=== PATIENT | male | born 1970 | race African-American/Black ===

== ENCOUNTER 2022-12-05 19:31 | Emergency (ER) | payer OTHER, SELFPAY ==
[2022-12-05 19:48] VITALS: BP 140/82; PULSE 66; RESP 16; TEMP 36.6; O2SAT 99
--- NOTE | 2022-12-05 20:11 | ED.MALEGU ---
HPI - Male Genitourinary General Chief complaint: Urogenital-Male Stated complaint: discharge Time Seen by Provider: 12/05/22 19:55 Source: patient and RN notes reviewed Mode of arrival: ambulatory Limitations: no limitations History of Present Illness HPI Narrative: Patient presents today complaining of 1 episode of brief dysuria 3 days ago, and none since that time. Today he noted some clear urethral discharge in his underwear. Denies any additional symptoms to include fever, sweats, chills, abdominal pain, scrotal pain or swelling. History of prostatitis in 2016. History of rheumatoid arthritis. Related Data Allergies Allergy/AdvReac Type Severity Reaction Status Date / Time oxycodone AdvReac Intermediate Cramping Verified 12/05/22 20:05 of the [facility] [place] Review of Systems Review of Systems: CONSTITUTIONAL: Denies body aches, fever, chills, or sweats. EYES: Denies visual changes, redness, or discharge. ENT: Denies rhinorrhea, congestion, sore throat, or otalgia. CARDIOVASCULAR: Denies chest pain, palpitations, or edema. RESPIRATORY: Denies cough or dyspnea. GASTROINTESTINAL: Denies abdominal pain, nausea, vomiting, or diarrhea. GENITOURINARY: Denies hematuria.+ dysuria-resolved, clear urethral discharge SKIN: Denies rash, itching, or wounds. MUSCULOSKELETAL: Denies back pain, joint pain, or myalgia. NEUROLOGIC: Denies headache, numbness, tingling, or weakness. PSYCH: Denies depression or anxiety. [facility] Past Medical History Medical History (Updated 12/05/22 @ 20:17 by Symone Gerard, [facility], ) History of prostatitis Rheumatoid arthritis Comments At time of signature, I have reviewed and agree with nursing past medical, surgical, social and family history unless otherwise noted. Please see nursing chart for further information. There is no relevant family history pertinent to the presenting complaint Exam Narrative: GENERAL: Well-appearing, well-nourished, and in no acute distress. HEAD: Normocephalic, atraumatic. EYES: EOMI. No redness or drainage. Conjunctivae normal. ENT: Mucous membranes pink and moist. NECK: Normal AROM. CHEST: No respiratory distress. : Exam deferred EXTREMITIES: Normal range of motion. No edema. SKIN: Warm, dry, no rash. Capillary refill normal. Normal skin turgor. NEURO: No focal deficits. Alert and oriented x3. Gait steady. PSYCH: Normal affect. No signs of depression or anxiety. Course Course Level of Care: Express Care Visit Vital Signs Vital signs: Vital Signs Temperature 97.8 F 12/05/22 19:48 Pulse Rate 66 12/05/22 19:48 Respiratory Rate 16 12/05/22 19:48 Blood Pressure 140/82 12/05/22 19:48 Pulse Oximetry 99 12/05/22 19:48 Oxygen Delivery Room Air 12/05/22 19:48 Temperature 97.8 F 12/05/22 19:48 Pulse Rate 66 12/05/22 19:48 Respiratory Rate 16 12/05/22 19:48 Blood Pressure 140/82 12/05/22 19:48 Pulse Oximetry 99 12/05/22 19:48 Oxygen Delivery Room Air 12/05/22 19:48 Reviewed. Pt has been instructed to follow up with his PCP regarding his elevated blood pressure today. MDM - Male Genitourinary MDM Narrative Medical decision making narrative: At this time, will treat patient's presumed UTI with a course of Keflex, based on his urinalysis results. Culture pending. Patient would like to be tested for gonorrhea, chlamydia, and Trichomonas, however, he declines prophylactic treatment at this time. Understands the risks and benefits. Anticipatory guidance given. Differential Diagnosis Differential diagnosis: Likely urinary tract infection, prostatitis and other (Gonorrhea, chlamydia, Trichomonas) Lab Data Attestation: I reviewed the patient's lab results. Labs: Urine Glucose Negative Reference Range: Negative Urine Bilirubin Negative Reference Range: Negative
== END 2022-12-05 20:23 | disposition home or self-care (01) ==
PROVIDERS: Emergency Provider Nurse Practitioner; PCP Hospitalist
DX: N30.01 Acute cystitis with hematuria (principal); M06.9 Rheumatoid arthritis, unspecified
CPT/HCPCS: 81003; 87086; 87491; 87591; 87661; 99203; G0463

== ENCOUNTER 2023-08-29 15:26 | Emergency (ER) | payer OTHER, SELFPAY ==
[2023-08-29 15:42] VITALS: BP 148/102; PULSE 71; RESP 16; TEMP 37.1; O2SAT 99
[2023-08-29 18:32] LABS: Trichomonas Vag PCR NOT DETECTED (NOT DETECTE)
[2023-08-29 18:56] LABS: Chlamydia trachomatis NOT DETECTED (NOT DETECTE); Neisseria gonorrhoeae PCR NOT DETECTED (NOT DETECTE)
== END 2023-08-29 16:37 | disposition home or self-care (01) ==
PROVIDERS: Emergency Provider Nurse Practitioner; PCP Hospitalist
DX: R30.0 Dysuria (principal); R31.29 Other microscopic hematuria
CPT/HCPCS: 81003; 87086; 87491; 87591; 87661; 99213; G0463

== ENCOUNTER 2024-03-24 18:00 | Emergency (ER) | payer OTHER, SELFPAY ==
--- NOTE | 2024-03-24 18:02 | ED_ITS ---
HPI - Male Genitourinary General Chief complaint: Urogenital-Male Stated complaint: urinary issue burning/discharge Time Seen by Provider: 03/24/24 18:02 Source: patient Mode of arrival: ambulatory Limitations: no limitations History of Present Illness HPI Narrative: [place] is a 53-year-old male patient presenting to the clinic today with complaints of burning with urination and penile discharge. He reports his symptoms started 2 days ago with slight burning with urination. Dist over the last 24 hours that he had some white penile discharge coming from his penis. No fever, chills, body aches, back pain, or abdominal pain. He reports he is in up monotonous relationship with his fiancee. States that she plans to come in and be evaluated tomorrow. Marilynn is denying any symptoms. Last intercourse was 2 weeks ago. Denies any testicular pain. History of prostatitis Related Data Allergies Allergy/AdvReac Type Severity Reaction Status Date / Time oxycodone AdvReac Intermediate Cramping Verified 08/29/23 15:33 of the [facility] [place] Review of Systems Review of Systems: Pertinent positives per HPI. Patient denies any fever, chills, rash, headache, visual changes, dizziness, cough, runny nose, sore throat, shortness of breath, chest pain, palpitations, nausea, vomiting, diarrhea, constipation, abdominal pain. [facility] Past Medical History Medical History History of prostatitis Rheumatoid arthritis Comments At the time of my signature, I reviewed and agree with the nursing past medical, surgical, social, and family history. There is no relevant family history pertinent to the patient complaint. Exam Narrative: General: Well-developed, well nourished, in no apparent distress. Head: Normocephalic, atraumatic. Cardio: Regular rate and rhythm, s1 and s2 normal, no murmur appreciated. Resp: Clear to auscultation bilaterally, no rhonchi, rales, wheezing or rubs. Abdomen: Soft, pliable, bowel sounds present in all quadrants, non-tender to palpation, no organomegly, no CVAT tenderness. : Circumcised male without corneal adhesions. No masses or lesions noted to the vas deferens or to the penile shaft. No discharge expressed when patient was milking the penis Course Course Emergency Course: Portions of this record may have been created with voice recognition software. Level of Care: Express Care Visit Vital Signs Vital signs: Vital Signs Temperature 36.1 C L 03/24/24 18:17 Pulse Rate 69 03/24/24 18:17 Respiratory Rate 16 03/24/24 18:17 Blood Pressure 126/70 03/24/24 18:17 Pulse Oximetry 99 03/24/24 18:17 Oxygen Delivery Room Air 03/24/24 18:17 Temperature 36.1 C L 03/24/24 18:17 Pulse Rate 69 03/24/24 18:17 Respiratory Rate 16 03/24/24 18:17 Blood Pressure 126/70 03/24/24 18:17 Pulse Oximetry 99 03/24/24 18:17 Oxygen Delivery Room Air 03/24/24 18:17 Vital signs reviewed MDM - Male Genitourinary MDM Narrative Medical decision making narrative: At the time of visit patient is resting comfortably on the exam table. Patient appears to be nontoxic. Labs: Urinalysis shows 2+ leukocytes. We will send for culture. Orders for gonorrhea, chlamydia, and Trichomonas be a urine was sent to the lab. Medications: Rocephin 500 mg IM given in the clinic today to cover for gonorrhea Plan: Will send in prescription for doxycycline as patient has 2+ leukocytes in his urine and white penile discharge. Suspicious for chlamydia. Supportive measures were discussed with the patient and they voiced understanding discharge instructions and agrees to treatment plan. Return precautions reviewed Differential Diagnosis Differential diagnosis: Likely urinary tract infection, urethritis, epididymitis, prostatitis and other (Chlamydia, gonorrhea, Trichomonas) Discharge Plan Discharge Clinical Impression: Dysuria, Discharge from penis, Encounter for screening examination for sexually transmitted infection Patient Disposition: Home, Self-Care Condition: Stable Instructions: Antibiotic Form, Sexually Transmitted Diseases (ED), Safe Sex Practices (ED), Dysuria (ED) Additional Instructions: Urinalysis shows 2+ leukocytes. We will send for culture. Rocephin 500 mg IM given in the clinic today to cover for gonorrhea Doxycycline 100 mg p.o. b.i.d. x7 days given to cover chlamydia Increase fluids and stay well hydrated May take Tylenol/Motrin as needed for pain We have tested/treated you for STIs in the clinic today. Avoid any sexual activity- includes oral, anal, or vaginal intercourse until you get results back and have completed any additional recommended treatment regimens. We will contact you if testing is positive and make sure your treatment was appropriate for the type of STI. If symptoms worsen after treatment recommend reevaluation with your PCP or STI clinic Prescriptions: New doxycycline monohydrate 100 mg capsule 100 mg PO BID 7 Days Qty: 14 0RF Follow-up/Referrals: UNKNOWN,DOCTOR [Primary Care Provider] - Time of Disposition: 18:32 Quality NIHSS Nursing Documentation ED NIHSS nursing documentation: reviewed/agree
[2024-03-24 18:17] VITALS: BP 126/70; PULSE 69; RESP 16; TEMP 36.1; O2SAT 99
[2024-03-24] MEDS: cefTRIAXone 500 MG, LIDOCAINE HCL 1% LOCAL INJ 1 ML IM (18:36)
[2024-03-24 18:50] LABS: EDUAAPPEAR Clear; EDUABILI Negative (Negative); EDUABLOOD Negative (Negative); EDUACOLOR1 Yellow; EDUAGLUCOSE Negative (Negative); EDUAKETONE Negative (Negative); EDUALEUKO 2+ (Negative); EDUANITRATE Negative (Negative); EDUAPH 6.5; EDUAPROTEIN Negative (Negative); EDUASPGRAVITY 1.025; EDUAUROBILI 0.2
[2024-03-24 20:36] LABS: Trichomonas Vag PCR NOT DETECTED (NOT DETECTE)
[2024-03-24 21:01] LABS: Chlamydia trachomatis NOT DETECTED (NOT DETECTE); Neisseria gonorrhoeae PCR NOT DETECTED (NOT DETECTE)
== END 2024-03-24 18:57 | disposition home or self-care (01) ==
PROVIDERS: Emergency Provider Nurse Practitioner Family
DX: R30.0 Dysuria (principal); R36.9 Urethral discharge, unspecified; Z11.3 Encounter for screening for infections with a predominantly sexual mode of transmission; M06.9 Rheumatoid arthritis, unspecified
CPT/HCPCS: 81003; 87086; 87491; 87591; 87661; 96372; 99213; G0463; J0696; J2003